=== PATIENT | male | born 1980 | race African-American/Black ===

== ENCOUNTER 2021-10-25 13:36 | Emergency (ER) | payer BC ==
[~2021-10-25] VITALS: Ht 185.4 cm; Wt 106.0 kg
[2021-10-25] MEDS ORDERED: KETOROLAC 30MG/ML VIAL IV STA (16:43)
[2021-10-25] MEDS ORDERED: MAGNESIUM/ALUMINUM HYDROXIDE/SIMETHICONE 30ML UDC PO STA (16:43)
[2021-10-25] MEDS ORDERED: ONDANSETRON HCL 4MG/2ML INJ IV STA (16:43)
[2021-10-25] MEDS ORDERED: SODIUM CHLORIDE 0.9% 1,000 ML IV ONE (16:45)
[2021-10-25 17:18] LABS: BASOPHILS % 0.5 % (0.0-2.0); EOSINOPHILS % 0.1 % (0.0-5.0); HEMATOCRIT. 43.4 % (42.0-52.0); HEMOGLOBIN. 15.1 g/dL (14.0-18.0); LYMPHOCYTES % 30.7 % (20.0-50.0); MEAN CORPUSCULAR HEMOGLOBIN 31.1 pg (28.0-32.0); MEAN CORPUSCULAR VOLUME 89.5 fL (80.0-94.0); MEAN PLATELET VOLUME 6.8 fl (7.4-10.4); MONOCYTES % 10.4 % (2.0-8.0); NEUTROPHILS % 58.3 % (40.0-76.0); PLATELET 387 x1000/uL (130-400); RED BLOOD CELL COUNT 4.85 mill/uL (4.7-6.1); RED CELL DISTRIBUTION WIDTH 12.8 % (11.6-14.6)
[2021-10-25 17:22] LABS: CLARITY URINE CLEAR (CLEAR); COLOR URINE DARK YELLOW (YELLOW); KETONES URINE 1+ (NEGATIVE); LEUKOCYTE ESTERASE URINE TRACE (NEGATIVE); NITRITE URINE NEGATIVE (NEGATIVE); OCCULT BLOOD URINE NEGATIVE (NEGATIVE); PH URINE 7.5 (4.5-8.0); PROTEIN URINE 1+ (NEGATIVE); SPECIFIC GRAVITY URINE 1.031 (1.005-1.030)
[2021-10-25 17:23] LABS: CHLORIDE 101 mEq/L (98-107)
[2021-10-25 17:30] LABS: ETHANOL BLOOD < 10 mg/dL
[2021-10-25 17:34] LABS: *AMPHETAMINES SCREEN URINE NEGATIVE (NEGATIVE); *BARBITURATES SCREEN URINE NEGATIVE (NEGATIVE); *BENZODIAZEPINES SCREEN URINE NEGATIVE (NEGATIVE); *COCAINE SCREEN URINE NEGATIVE (NEGATIVE); CANNABINOID URINE SCREEN PRESUMTIVE POSITIVE (NEGATIVE); METHADONE URINE SCREEN NEGATIVE (NEGATIVE); OPIATES URINE SCREEN NEGATIVE (NEGATIVE); PHENCYCLIDINE URINE SCREEN NEGATIVE (NEGATIVE)
[2021-10-25] MEDS ORDERED: ONDA4TAB50 MT (19:47)
[2021-10-25] MEDS ORDERED: OMEP40CA20 MT (19:47)
[2021-10-25] MEDS ORDERED: ONDANSETRON 4MG ODT PO ONE (20:15)
[2021-10-25 20:21] VITALS: BP 124/65
== END 2021-10-25 20:25 | disposition home or self-care (01) ==
LOC: ER 14:34
DX: R10.33 Periumbilical pain (principal); R11.2 Nausea with vomiting, unspecified; J45.909 Unspecified asthma, uncomplicated; Z87.828 Personal history of other (healed) physical injury and trauma
CPT/HCPCS: 36415; 74176; 80053; 80305; 80320; 81003; 83690; 85025; 96361; 96374; 96375; 99284; J1885; J2405; J7030; Z7610; G0480